=== PATIENT | female | born 1955 | race Caucasian/White ===

== ENCOUNTER 2018-12-12 17:05 | Emergency (ER) | payer OTHER | END 2018-12-12 18:08 | disposition home or self-care (01) | LOC: EDH 17:05 | DX: S82.831A Other fracture of upper and lower end of right fibula, initial encounter for closed fracture (principal); E07.9 Disorder of thyroid, unspecified; Z90.710 Acquired absence of both cervix and uterus; W18.39XA Other fall on same level, initial encounter; Y93.01 Activity, walking, marching and hiking; Y92.009 Unspecified place in unspecified non-institutional (private) residence as the place of occurrence of the external cause; Y99.8 Other external cause status | CPT/HCPCS: 73610 ==